=== PATIENT | female | born 1960 | race Caucasian/White ===

== ENCOUNTER → 2017-03-30 07:05 | Outpatient (CLI) | payer OTHER, SELFPAY ==
[2017-03-30 10:38] LABS: Absolute Neutrophil Count 8.1 X10^3/uL (2.0-7.7); Basophil# 0.04 X10^3/uL; Basophil% 0.3 % (0-1); Eosinophil# 0.28 X10^3/uL; Eosinophils% 2.4 % (0-5); Hematocrit 40.7 % (37-47); Hemoglobin 13.3 g/dl (12.0-15.0); Lymphocyte % 16.1 % (19-41); Mean Corp Hgb Conc 32.7 g/gl (32-36); Mean Corpuscular Hgb 29.4 pg (27.0-32.0); Mean Platelet Vol. 11.6 fl (6.2-12.0); Monocyte# 1.44 X10^3/uL; Monocyte% 12.2 % (0-10); Neutrophil # 8.12 X10^3/uL (2.7-7.7); Neutrophil % 68.7 % (47-70); Platelet Count 344 K/mm3 (150-450); RBC Distribution Width CV 13.5 % (11.6-14.6); RBC Distribution Width SD 43.9 fl (35.1-43.9); Red Blood Count 4.52 M/mm3 (4.2-5.4); White Blood Count 11.8 K/mm3 (4.4-11.0)
[2017-03-30 10:41] LABS: POSITIVE COUNT NO; POSITIVE DIFFERENTIAL NO; POSITIVE MORPHOLOGY NO
[2017-03-30 10:56] LABS: Vitamin D,25 Hydroxy 25.6 ng/mL (19.95-100.01)
[2017-03-30 11:16] LABS: ALB/GLOB Ratio 0.9 RATIO (0.9-2.4); AST(SGOT) 28 U/L (15-37); Alanine Aminotransfer ALT/SGPT 43 U/L (13-56); Albumin, Serum 3.6 g/dL (3.2-5.0); Alkaline Phosphatase 116 U/L (45-117); Anion Gap 9 (5-15); BUN 20 mg/dL (7-18); BUN/Creat Ratio 28.5 RATIO (10-20); CPK Total, Creatine Kinase 115 U/L (26-192); Chloride 102 mmol/L (98-107); Cholesterol 165 mg/dL (200); EST Glomerular Filtration Rate 92 mL/min (>60); Est Glom Filt Rate - Afr Amer 111 mL/min (>60); Globulin 4.1 g/dL (2.2-4.2); Glucose 78 mg/dL (74-106); High Density Lipoprotein 40 mg/dL; Potassium 3.8 mmol/L (3.5-5.1); Protein, Total 7.7 g/dL (6.4-8.2); Sodium Level 139 mmol/L (136-145); Thyroid Stim Hormone (TSH) 1.52 uIU/mL (0.358-3.74); Triglycerides 148 mg/dL; Very Low Density Lipoprotein 30 mg/dL (5-40)
== END ==
PROVIDERS: Family Provider Family Medicine; PCP Family Medicine; Visit Provider Family Medicine
DX: R25.2 Cramp and spasm (principal); E55.9 Vitamin D deficiency, unspecified; E78.5 Hyperlipidemia, unspecified; Z02.9 Encounter for administrative examinations, unspecified; Z72.0 Tobacco use; Z13.29 Encounter for screening for other suspected endocrine disorder
CPT/HCPCS: 36415; 80053; 80061; 82306; 82550; 84443; 85025

== ENCOUNTER → 2018-01-01 16:15 | Outpatient (CLI) | payer OTHER, SELFPAY ==
[2016-04-14 21:03] VITALS: BMI 23.5
[2018-01-01 17:50] LABS: Absolute Lymphocyte Count 2.27 X10^3/ul (0.83-4.51); Basophil# 0.03 X10^3/uL; Basophil% 0.3 % (0-1); Eosinophil# 0.26 X10^3/uL; Eosinophils% 2.7 % (0-5); Hematocrit 41.8 % (37-47); Hemoglobin 13.6 g/dl (12.0-15.0); Lymphocyte # 2.27 X10^3/ul (4.0); Lymphocyte % 23.8 % (19-41); Mean Corp Hgb Conc 32.5 g/gl (32-36); Mean Corpuscular Hgb 29.2 pg (27.0-32.0); Mean Corpuscular Volume 89.9 fL (81-99); Mean Platelet Vol. 10.9 fl (6.2-12.0); Monocyte% 9.5 % (0-10); Neutrophil # 6.04 X10^3/uL (2.7-7.7); Neutrophil % 63.5 % (47-70); Platelet Count 377 K/mm3 (150-450); RBC Distribution Width CV 13.6 % (11.6-14.6); RBC Distribution Width SD 44.5 fl (35.1-43.9); Red Blood Count 4.65 M/mm3 (4.2-5.4); White Blood Count 9.5 K/mm3 (4.4-11.0)
[2018-01-01 17:59] LABS: POSITIVE COUNT NO; POSITIVE DIFFERENTIAL NO; POSITIVE MORPHOLOGY NO
[2018-01-01 18:16] LABS: ALB/GLOB Ratio 1.1 RATIO (0.9-2.4); AST(SGOT) 17 U/L (15-37); Alanine Aminotransfer ALT/SGPT 27 U/L (13-56); Albumin, Serum 4.1 g/dL (3.2-5.0); Alkaline Phosphatase 92 U/L (45-117); Anion Gap 9 (5-15); BUN 15 mg/dL (7-18); BUN/Creat Ratio 20.3 RATIO (10-20); Calcium,Total 9.4 mg/dL (8.5-10.1); Chloride 107 mmol/L (98-107); Cholesterol 251 mg/dL (200); Creatinine, Serum 0.74 mg/dL (0.55-1.02); EST Glomerular Filtration Rate 86 mL/min (>60); Est Glom Filt Rate - Afr Amer 104 mL/min (>60); Globulin 3.9 g/dL (2.2-4.2); Glucose 90 mg/dL (74-106); High Density Lipoprotein 46 mg/dL; Potassium 3.6 mmol/L (3.5-5.1); Sodium Level 142 mmol/L (136-145); Triglycerides 131 mg/dL; Very Low Density Lipoprotein 26 mg/dL (5-40)
[2018-01-01 18:23] LABS: Vitamin D,25 Hydroxy 30.5 ng/mL (29.95-100.01)
--- OUTSIDE RECORDS SUMMARY | 2018-02-27 09:04 | XMS RPT_ITS ---
:1960 Author Organization OHIP Care Team Providers Name Role Phone Derrick Delgado Attending Unavailable Derrick Delgado Primary Care Unavailable Derrick Delgado Attending Unavailable Derrick Delgado Primary Care Unavailable PROBLEMS PROBLEMS DATE TYPE CONDITION / CODE ATTENDING STATUS SOURCE 04/05/2017 Unknown R25.2 - Cramp Derrick Delgado Active [place] [facility] / Community R25.2(ICD-10) Hospital Repository PROCEDURES PROCEDURES No Procedure Records FoundRESULTS RESULTS CBC W/DIFF, AUTOMATED Collected: 01/01/2018 Status: F Source: [place] 4:16 PM [facility] REPOSITORY TYPE CODE TESTS RESULT OUT OF RANGE REFERENCE UNITS LAB L100.1000 4.4-11.0 K/mm3 Normal WBC 9.5 LAB L100.1200 4.2-5.4 M/mm3 Normal RBC 4.65 LAB L100.1300 12.0-15.0 g/dl Normal HGB 13.6 LAB L100.1400 37-47 % Normal HCT 41.8 LAB L100.1500 81-99 fL Normal MCV 89.9 LAB L100.1600 27.0-32.0 pg Normal MCH 29.2 LAB L100.1700 32-36 g/gl Normal MCHC 32.5 LAB L100.1810 11.6-14.6 % Normal RDW CV 13.6 LAB L100.1820 35.1-43.9 fl High RDW SD 44.5 LAB L100.1900 150-450 K/mm3 Normal PLT 377 LAB L100.2000 6.2-12.0 fl Normal MPV 10.9 LAB L100.2100 47-70 % Normal NEUT% 63.5 LAB L100.2200 19-41 % Normal LY% 23.8 LAB L100.2300 0-10 % Normal MONO% 9.5 LAB L100.2400 0-5 % Normal EO% 2.7 LAB L100.2500 0-1 % Normal BASO% 0.3 LAB L100.2550 0.0-0.9 % Normal IM GRAN % 0.200 Result Comment: IG% - Immature Granulocytes (promyelocytes, myelocytes and metamyelocytes) > 1% indicates that a LEFT SHIFT is Present. LAB L100.2620 2.0-7.7 X10 3/uL Normal Absolute Neut 6.0 LAB L100.2720 0.83-4.51 X10 3/ul Normal Absolute Lymph 2.27 Performed By: #### L100.0100, L500.4050, L500.4100, L506.1000 #### [facility] [address] [place], [address] COMPREHENSIVE METABOLIC Collected: 01/01/2018 Status: F Source: [facility] 4:16 PM [facility] REPOSITORY TYPE CODE TESTS RESULT OUT OF RANGE REFERENCE UNITS LAB L501.0100 74-106 mg/dL Normal GLU 90 Result Comment: Please note revised GLUCOSE reference range effective 2017. LAB L501.1000 7-18 mg/dL Normal BUN 15 LAB L501.1100 0.55-1.02 mg/dL Normal CREAT,SERUM 0.74 Result Comment: The validity of the calculated GFR AND GFRAA in patients over 70 years has not been determined. Clinical correlation is essential. LAB L501.1110 >60 mL/min Normal EST GFR 86 Result Comment: Non- GFR Calc LAB L501.1115 >60 mL/min Normal EST GFR - AA 104 Result Comment: GFR Calc LAB L501.1300 10-20 RATIO High BUN/CRE 20.3 LAB L501.1500 6.4-8.2 g/dL T Normal PROT 8.0 LAB L501.1800 3.2-5.0 g/dL Normal ALB 4.1 LAB L501.1950 2.2-4.2 g/dL Normal GLOB 3.9 LAB L501.2000 0.9-2.4 RATIO Normal A/G 1.1 LAB L501.2200 8.5-10.1 mg/dL CA Normal 9.4 LAB L501.4100 15-37 U/L Normal AST 17 LAB L501.4305 45-117 U/L Normal ALK P 92 LAB L501.4405 13-56 U/L Normal ALT 27 LAB L501.4600 0.20-1.00 mg/dL T Normal BILI 0.20 LAB L501.5300 136-145 mmol/L NA Normal 142 LAB L501.5600 3.5-5.1 mmol/L K Normal 3.6 LAB L501.5900 98-107 mmol/L CL Normal 107 LAB L501.6100 21.0-32.0 mmol/L Normal CO2 26.0 LAB L501.6200 5-15 Normal GAP 9 Performed By: #### L100.0100, L500.4050, L500.4100, L506.1000 #### [facility] [address] [place], [address] LIPID PROFILE Collected: 01/01/2018 Status: F Source: [place] 4:16 PM [facility] REPOSITORY TYPE CODE TESTS RESULT OUT OF RANGE REFERENCE UNITS LAB L501.4900 200 mg/dL High CHOL 251 Result Comment: <200 mg/dL Desirable 200-240 mg/dL Borderline >240 mg/dL High Risk LAB L501.5000 mg/dL Normal TRIG 131 Result Comment: The drugs N-Acetylcysteine and Metamizole may falsely depress this assay. Serum Triglycerides Reference Interval Normal <150 mg/dL Borderline high 150 - 199 mg/dL High 200 - 499 mg/dL Very High > or = 500 mg/dL LAB L501.6400 mg/dL Normal HDL 46 Result Comment: The drugs N-Acetylcysteine and Metamizole may falsely depress this assay. Reference Range HDL <40 mg/dL Low HDL Cholesterol HDL >or= 60 mg/dL High HDL Cholesterol LAB L501.6500 0-130 mg/dL High LDL 179 LAB L501.6600 5-40 mg/dL Normal VLDL 26 Performed By: #### L100.0100, L500.4050, L500.4100, L506.1000 #### [facility] [address] [place], [address] VITAMIN D,25 HYDROXY Collected: 01/01/2018 Status: F Source: [place] 4:16 PM [facility] REPOSITORY TYPE CODE TESTS RESULT OUT OF RANGE REFERENCE UNITS LAB L506.1000 29.95-100.01 ng/mL Normal Vitamin D 30.5 25-OH Result Comment: Vitamin D 25(OH) Status Range Deficiency <20 ng/mL (50nmol/L) Insuffciency 20 - 30 ng/mL (50 - 75 nmol/L) Sufficiency 30 - 100 ng/mL (75 - 250 nmol/L) Toxicity >100 ng/mL (>250 nmol/L) Performed By: #### L100.0100, L500.4050, L500.4100, L506.1000 #### [facility] [address] [place], [address] CBC W/DIFF, AUTOMATED Collected: 03/30/2017 Status: F Source: [place] 7:18 AM [facility] REPOSITORY Order Comment: Order Date: 03/28/17 Order Info: 0184-1 - CBCD TYPE CODE TESTS RESULT OUT OF RANGE REFERENCE UNITS LAB L100.1000 4.4-11.0 K/mm3 High WBC 11.8 LAB L100.1200 4.2-5.4 M/mm3 Normal RBC 4.52 LAB L100.1300 12.0-15.0 g/dl Normal HGB 13.3 LAB L100.1400 37-47 % Normal HCT 40.7 LAB L100.1500 81-99 fL Normal MCV 90.0 LAB L100.1600 27.0-32.0 pg Normal MCH 29.4 LAB L100.1700 32-36 g/gl Normal MCHC 32.7 LAB L100.1810 11.6-14.6 % Normal RDW CV 13.5 LAB L100.1820 35.1-43.9 fl Normal RDW SD 43.9 LAB L100.1900 150-450 K/mm3 Normal PLT 344 LAB L100.2000 6.2-12.0 fl Normal MPV 11.6 LAB L100.2100 47-70 % Normal NEUT% 68.7 LAB L100.2200 19-41 % Low LY% 16.1 LAB L100.2300 0-10 % High MONO% 12.2 LAB L100.2400 0-5 % Normal EO% 2.4 LAB L100.2500 0-1 % Normal BASO% 0.3 LAB L100.2550 0.0-0.9 % Normal IM GRAN % 0.300 Result Comment: IG% - Immature Granulocytes (promyelocytes, myelocytes and metamyelocytes) > 1% indicates that a LEFT SHIFT is Present. LAB L100.2620 2.0-7.7 X10 3/uL High Absolute Neut 8.1 LAB L100.2720 0.83-4.51 X10 3/ul Normal Absolute Lymph 1.90 Performed By: #### L100.0100, L506.1000, L500.4050, L500.4100, L501.3620, L501.9520 #### [facility] [address] [place], [place], [id number] VITAMIN D,25 HYDROXY Collected: 03/30/2017 Status: F Source: [place] 7:18 AM [facility] REPOSITORY Order Comment: Order Date: 03/28/17 Order Info: [id number] - VITD25 TYPE CODE TESTS RESULT OUT OF RANGE REFERENCE UNITS LAB L506.1000 19.95-100.01 ng/mL Normal Vitamin D 25.6 25-OH Result Comment: Vitamin D 25(OH) Status Range Deficiency <20 ng/mL (50nmol/L) Insuffciency 20 - 30 ng/mL (50 - 75 nmol/L) Sufficiency 30 - 100 ng/mL (75 - 250 nmol/L) Toxicity >100 ng/mL (>250 nmol/L) Performed By: #### L100.0100, L506.1000, L500.4050, L500.4100, L501.3620, L501.9520 #### [facility] [address] [place], [id number] COMPREHENSIVE METABOLIC Collected: 03/30/2017 Status: F Source: [place] [facility] 7:18 AM [facility] REPOSITORY Order Comment: Order Date: 03/28/17 Order Info: [id number] - CMP Order Info: [id number] - LIPID Order Info: [id number] - CPK Order Info: 3016-3 - TSH TYPE CODE TESTS RESULT OUT OF RANGE REFERENCE UNITS LAB L501.0100 74-106 mg/dL Normal GLU 78 Result Comment: Please note revised GLUCOSE reference range effective 2017. LAB L501.1000 7-18 mg/dL High BUN 20 LAB L501.1100 0.55-1.02 mg/dL Normal CREAT,SERUM 0.70 Result Comment: The validity of the calculated GFR AND GFRAA in patients over 70 years has not been determined. Clinical correlation is essential. LAB L501.1110 >60 mL/min Normal EST GFR 92 Result Comment: Non- GFR Calc LAB L501.1115 >60 mL/min Normal EST GFR - AA 111 Result Comment: GFR Calc LAB L501.1300 10-20 RATIO High BUN/CRE 28.5 LAB L501.1500 6.4-8.2 g/dL T Normal PROT 7.7 LAB L501.1800 3.2-5.0 g/dL Normal ALB 3.6 LAB L501.1950 2.2-4.2 g/dL Normal GLOB 4.1 LAB L501.2000 0.9-2.4 RATIO Normal A/G 0.9 LAB L501.2200 8.5-10.1 mg/dL CA Normal 9.0 LAB L501.4100 15-37 U/L Normal AST 28 LAB L501.4305 45-117 U/L Normal ALK P 116 LAB L501.4405 13-56 U/L Normal ALT 43 Result Comment: Please note revised ALT reference range effective 2017. LAB L501.4600 0.20-1.00 mg/dL Normal T BILI 0.40 LAB L501.5300 136-145 mmol/L Normal NA 139 LAB L501.5600 3.5-5.1 mmol/L Normal K 3.8 LAB L501.5900 98-107 mmol/L Normal CL 102 LAB L501.6100 21.0-32.0 mmol/L Normal CO2 28.0 LAB L501.6200 5-15 Normal GAP 9 Performed By: #### L100.0100, L506.1000, L500.4050, L500.4100, L501.3620, L501.9520 #### [facility] [address] [place], [place], [address] LIPID PROFILE Collected: 03/30/2017 Status: F Source: [place] 7:18 AM [facility] REPOSITORY Order Comment: Order Date: 03/28/17 Order Info: [id number] - CMP Order Info: [id number] - LIPID Order Info: 6 - CPK Order Info: 3016-3 - TSH TYPE CODE TESTS RESULT OUT OF RANGE REFERENCE UNITS LAB L501.4900 200 mg/dL Normal CHOL 165 Result Comment: <200 mg/dL Desirable 200-240 mg/dL Borderline >240 mg/dL High Risk LAB L501.5000 mg/dL Normal TRIG 148 Result Comment: The drugs N-Acetylcysteine and Metamizole may falsely depress this assay. Serum Triglycerides Reference Interval Normal <150 mg/dL Borderline high 150 - 199 mg/dL High 200 - 499 mg/dL Very High > or = 500 mg/dL LAB L501.6400 mg/dL Normal HDL 40 Result Comment: The drugs N-Acetylcysteine and Metamizole may falsely depress this assay. Reference Range HDL <40 mg/dL Low HDL Cholesterol HDL >or= 60 mg/dL High HDL Cholesterol LAB L501.6500 0-130 mg/dL Normal LDL 95 LAB L501.6600 5-40 mg/dL Normal VLDL 30 Performed By: #### L100.0100, L506.1000, L500.4050, L500.4100, L501.3620, L501.9520 #### [facility] [address] [place], [address] CPK TOTAL, CREATINE Collected: 03/30/2017 Status: F Source: [place] 7:18 AM [facility] REPOSITORY Order Comment: Order Date: 03/28/17 Order Info: [id number] - CMP Order Info: [id number] - LIPID Order Info: [id number] - CPK Order Info: 3016-3 - TSH TYPE CODE TESTS RESULT OUT OF RANGE REFERENCE UNITS LAB L501.3620 26-192 U/L Normal CPK TOTAL 115 Performed By: #### L100.0100, L506.1000, L500.4050, L500.4100, L501.3620, L501.9520 #### [facility] [address] [place], [address] THYROID STIM HORMONE Collected: 03/30/2017 Status: F Source: [place] ([facility]) 7:18 AM [facility] REPOSITORY Order Comment: Order Date: 03/28/17 Order Info: [id number] - CMP Order Info: [id number] - LIPID Order Info: [id number] - CPK Order Info: 3016-3 - TSH TYPE CODE TESTS RESULT OUT OF RANGE REFERENCE UNITS LAB L501.9520 0.358-3.74 uIU/mL Normal TSH 1.52 Performed By: #### L100.0100, L506.1000, L500.4050, L500.4100, L501.3620, L501.9520 #### [facility] [address] [place], [address] ALLERGIES ALLERGIES DATE TYPE / CODE NAME / CODE REACTION SEVERITY SOURCE 07/29/2014 Drug No Known Unknown [facility] Allergy/4160 Allergies/F00 Hospital 98518(SNOMED 9941648(RXNOR Repository CT) M) ENCOUNTERS ENCOUNTERS ADMIT/DISCHARGE ACCOUNT ADMITTING ENCOUNTER LOCATION SOURCE NUMBER CLASS 01/01/2018 [id number] [facility] [place] [facility] ing:MFPLAB Repository 03/30/2017 [id number] [facility] ing:MTLAB Repository PAYERS PAYERS ENCOUNTER GUARANTOR PAYER SUBSCRIBER SOURCE 01/01/2018 [id number] Faustino KennedyOB: [place] [address], Insurance:AULTCAREPol [id number] [facility] [address]Tec: icy Number: [facility] [id number] Repository () e Date:5412-40-79GN [address] [place] [phone]: 01/01/2018 Secondary NOT GIVENUNK [facility] Insurance:SELF PAY [facility] Number: Effective Repository Date:2018-01-01 03/30/2017 [address]ino [id number] Faustino HauserDOB: [place] [address], Insurance:AULTCAREPol [id number] [facility] [address]Kqo: icy Number: [facility] [id number] Repository () e Date:1828-13-59TB [address], [place] [address]TP: 03/30/2017 Secondary NOT GIVENUNK [place] Insurance:SELF PAY [facility] Number: Effective Repository Date:2017-03-30
== END ==
PROVIDERS: Family Provider Family Medicine; PCP Family Medicine; Visit Provider Family Medicine
DX: E78.5 Hyperlipidemia, unspecified (principal); E55.9 Vitamin D deficiency, unspecified; Z72.0 Tobacco use
CPT/HCPCS: 36415; 80053; 80061; 82306; 85025

== ENCOUNTER → 2018-02-22 08:56 | Outpatient (CLI) | payer OTHER, SELFPAY ==
[2018-02-22 11:09] LABS: Cholesterol 150 mg/dL (200); High Density Lipoprotein 36 mg/dL; Triglycerides 106 mg/dL; Very Low Density Lipoprotein 21 mg/dL (5-40)
--- OUTSIDE RECORDS SUMMARY | 2018-04-28 15:56 | XMS RPT_ITS ---
:1960 Author Organization OHIP Care Team Providers Name Role Phone Derrick Delgado Attending Unavailable Derrick Delgado Primary Care Unavailable Derrick Delgado Attending Unavailable Derrick Delgado Primary Care Unavailable Derrick Delgado Attending Unavailable Derrick Delgado Primary Care Unavailable PROBLEMS PROBLEMS DATE TYPE CONDITION / CODE ATTENDING STATUS SOURCE 04/05/2017 Unknown R25.2 - Cramp Derrick Delgado Active [place] [facility] / Community R25.2(ICD-10) Hospital Repository PROCEDURES PROCEDURES No Procedure Records FoundRESULTS RESULTS LIPID PROFILE Collected: 02/22/2018 Status: F Source: [place] 8:59 AM [facility] REPOSITORY TYPE CODE TESTS RESULT OUT OF RANGE REFERENCE UNITS LAB L501.4900 200 mg/dL Normal CHOL 150 Result Comment: <200 mg/dL Desirable 200-240 mg/dL Borderline >240 mg/dL High Risk LAB L501.5000 mg/dL Normal TRIG 106 Result Comment: The drugs N-Acetylcysteine and Metamizole may falsely depress this assay. Serum Triglycerides Reference Interval Normal <150 mg/dL Borderline high 150 - 199 mg/dL High 200 - 499 mg/dL Very High > or = 500 mg/dL LAB L501.6400 mg/dL Low HDL 36 Result Comment: The drugs N-Acetylcysteine and Metamizole may falsely depress this assay. Reference Range HDL <40 mg/dL Low HDL Cholesterol HDL >or= 60 mg/dL High HDL Cholesterol LAB L501.6500 0-130 mg/dL Normal LDL 93 LAB L501.6600 5-40 mg/dL Normal VLDL 21 Performed By: #### L500.4100 #### [facility] [place], [address] CBC W/DIFF, AUTOMATED Collected: 01/01/2018 Status: F Source: [place] 4:16 PM [facility] [place] TYPE CODE TESTS RESULT OUT OF [...] By: #### L100.0100, L500.4050, L500.4100, L506.1000 #### [facility] [address] [place], [address] COMPREHENSIVE METABOLIC Collected: 01/01/2018 Status: F Source: [place] [facility] 4:16 PM [facility] TYPE CODE TESTS RESULT OUT OF [...] By: #### L100.0100, L500.4050, L500.4100, L506.1000 #### [facility] [address] [place], [address] LIPID PROFILE Collected: 01/01/2018 Status: F Source: [place] 4:16 PM [facility] TYPE CODE TESTS RESULT OUT OF [...] By: #### L100.0100, L500.4050, L500.4100, L506.1000 #### [facility] [address] [place], [place], [address] VITAMIN D,25 HYDROXY Collected: 01/01/2018 Status: F Source: [place] 4:16 PM [facility] TYPE CODE TESTS RESULT OUT OF RANGE REFERENCE UNITS LAB L506.1000 29.95-100.01 ng/mL Normal Vitamin D 30.5 25-OH Result Comment: Vitamin D 25(OH) Status Range Deficiency <20 ng/mL (50nmol/L) Insuffciency 20 - 30 ng/mL (50 - 75 nmol/L) Sufficiency 30 - 100 ng/mL (75 - 250 nmol/L) Toxicity >100 ng/mL (>250 nmol/L) Performed By: #### L100.0100, L500.4050, L500.4100, L506.1000 #### [facility] [address] [place], [address] CBC W/DIFF, AUTOMATED Collected: 03/30/2017 Status: F Source: [place] 7:18 AM [facility] Order Comment: Order Date: 03/28/17 Order [...] L100.0100, L506.1000, L500.4050, L500.4100, L501.3620, L501.9520 #### [facility] [address] [place], [address] VITAMIN D,25 HYDROXY Collected: 03/30/2017 Status: F Source: [place] 7:18 AM [facility] Order Comment: Order Date: 03/28/17 Order Info: [id number] - VITD25 TYPE CODE TESTS RESULT OUT [...] L100.0100, L506.1000, L500.4050, L500.4100, L501.3620, L501.9520 #### [facility] [address] [place], [address] COMPREHENSIVE METABOLIC Collected: 03/30/2017 Status: F Source: [place] [facility] 7:18 AM [facility] Order Comment: Order Date: 03/28/17 Order Info: [id number] - CMP Order Info: [id number] - LIPID Order Info: 2157-6 - CPK [...] L100.0100, L506.1000, L500.4050, L500.4100, L501.3620, L501.9520 #### [facility] [address] [place], [address] LIPID PROFILE Collected: 03/30/2017 Status: F Source: [place] 7:18 AM [facility] Order Comment: Order Date: 03/28/17 Order Info: [id number] - CMP Order Info: [id number] - LIPID Order Info: 2157-6 - CPK [...] L100.0100, L506.1000, L500.4050, L500.4100, L501.3620, L501.9520 #### [facility] [address] [place], [place], [address] CPK TOTAL, CREATINE Collected: 03/30/2017 Status: F Source: [place] 7:18 AM [facility] Order Comment: Order Date: 03/28/17 Order Info: [id number] - CMP Order Info: [id number] - LIPID Order Info: [id number] - CPK Order Info: 3016-3 - TSH TYPE CODE TESTS RESULT OUT OF RANGE REFERENCE UNITS LAB L501.3620 26-192 U/L Normal CPK TOTAL 115 Performed By: #### L100.0100, L506.1000, L500.4050, L500.4100, L501.3620, L501.9520 #### [facility] [address] [place], [place], [address] THYROID STIM HORMONE Collected: 03/30/2017 Status: F Source: [place] ([facility]) 7:18 AM [facility] Order Comment: Order Date: 03/28/17 Order Info: [id number] - CMP Order Info: [id number] - LIPID Order Info: 215-6 - CPK Order Info: 3016-3 - TSH TYPE CODE TESTS RESULT OUT OF RANGE REFERENCE UNITS LAB L501.9520 0.358-3.74 uIU/mL Normal TSH 1.52 Performed By: #### L100.0100, L506.1000, L500.4050, L500.4100, L501.3620, L501.9520 #### [facility] [address] [place], [address] ALLERGIES ALLERGIES DATE TYPE / CODE NAME / CODE REACTION SEVERITY SOURCE 07/29/2014 Drug No Known Unknown [facility] Allergy/4160 Allergies/F00 Hospital 28040(SNOMED 5889409(RXNOR Repository CT) M) ENCOUNTERS ENCOUNTERS ADMIT/DISCHARGE ACCOUNT ADMITTING ENCOUNTER LOCATION SOURCE NUMBER CLASS 02/22/2018 [id number] Amb[facility] [place] 3 [facility] ing:MFPLAB Repository 01/01/2018 [id number] [facility] [place] [facility] ing:MFPLAB Repository 03/30/2017 [id number] [facility] ing:MTLAB Repository PAYERS PAYERS ENCOUNTER GUARANTOR PAYER SUBSCRIBER SOURCE 02/22/2018 Faustino [id number] Primary Faustino HauserDOB: [place] [address], Insurance:AULTAlegría [id number] [address]Fky: icy Number: [facility] [id number] Repository (HP) e Date:5205-20-37ZZ [address] [place] [phone]: 02/22/2018 Secondary NOT GIVENUNK [place] Insurance:SELF PAY [facility] Number: Effective Repository Date:2018-02-22 01/01/2018 Faustino [id number] Faustino HauserDOB: [place] [address], Insurance:AULTAlegría [id number] [address]Zsf: icy Number: [facility] [id number] Repository (HP) e Date:0714-66-57ND [address] [place] [phone]: 01/01/2018 Secondary NOT GIVENUNK [place] Insurance:SELF PAY [facility] Number: Effective Repository Date:2018-01-01 03/30/2017 Faustino [id number] Faustino HauserDOB: [place] [address], Insurance:AULTCAREPol [id number] [facility] [address]Zsy: icy Number: [facility] [id number] Repository (HP) e Date:4300-43-83MY [address], [place] [address]QO: 03/30/2017 Secondary NOT GIVENUNK [place] Insurance:SELF PAY [facility] Number: Effective Repository Date:2017-03-30
== END ==
PROVIDERS: Family Provider Family Medicine; PCP Family Medicine; Visit Provider Family Medicine
DX: E78.5 Hyperlipidemia, unspecified (principal)
CPT/HCPCS: 36415; 80061

== ENCOUNTER → 2018-05-08 09:31 | Outpatient (CLI) | payer SELFPAY ==
[2016-04-14 21:03] VITALS: BMI 23.5
[2018-05-08 10:33] LABS: ALB/GLOB Ratio 1.1 RATIO (0.9-2.4); AST(SGOT) 28 U/L (15-37); Alanine Aminotransfer ALT/SGPT 43 U/L (13-56); Albumin, Serum 3.9 g/dL (3.2-5.0); Alkaline Phosphatase 99 U/L (45-117); Anion Gap 4 (5-15); BUN 19 mg/dL (7-18); BUN/Creat Ratio 27.8 RATIO (10-20); Calcium,Total 9.1 mg/dL (8.5-10.1); Chloride 107 mmol/L (98-107); Cholesterol 174 mg/dL (200); Creatinine, Serum 0.68 mg/dL (0.55-1.02); EST Glomerular Filtration Rate 94 mL/min (>60); Est Glom Filt Rate - Afr Amer 114 mL/min (>60); Globulin 3.5 g/dL (2.2-4.2); Glucose 87 mg/dL (74-106); High Density Lipoprotein 41 mg/dL; Potassium 4.2 mmol/L (3.5-5.1); Protein, Total 7.4 g/dL (6.4-8.2); Sodium Level 139 mmol/L (136-145); Triglycerides 143 mg/dL; Very Low Density Lipoprotein 29 mg/dL (5-40)
== END ==
PROVIDERS: Family Provider Family Medicine; PCP Family Medicine; Referring Provider Family Medicine; Visit Provider Family Medicine
DX: E78.5 Hyperlipidemia, unspecified (principal)
CPT/HCPCS: 36415; 80053; 80061

== ENCOUNTER → 2018-11-06 | Outpatient (CLI) | payer SELFPAY ==
[2016-04-14 21:03] VITALS: BMI 23.5
[2018-11-06 13:04] LABS: Vitamin D,25 Hydroxy 50.1 ng/mL (29.95-100.01)
[2018-11-06 13:24] LABS: ALB/GLOB Ratio 1.1 RATIO (0.9-2.4); AST(SGOT) 17 U/L (15-37); Alanine Aminotransfer ALT/SGPT 29 U/L (13-56); Albumin, Serum 4.1 g/dL (3.2-5.0); Alkaline Phosphatase 91 U/L (45-117); Anion Gap 8 (5-15); BUN 18 mg/dL (7-18); BUN/Creat Ratio 23.7 RATIO (10-20); CPK Total, Creatine Kinase 138 U/L (26-192); Calcium,Total 9.4 mg/dL (8.5-10.1); Chloride 108 mmol/L (98-107); Cholesterol 159 mg/dL (200); Creatinine, Serum 0.76 mg/dL (0.55-1.02); EST Glomerular Filtration Rate 83 mL/min (>60); Est Glom Filt Rate - Afr Amer 101 mL/min (>60); Globulin 3.7 g/dL (2.2-4.2); Glucose 82 mg/dL (74-106); High Density Lipoprotein 44 mg/dL; Potassium 4.1 mmol/L (3.5-5.1); Protein, Total 7.8 g/dL (6.4-8.2); Sodium Level 142 mmol/L (136-145); Triglycerides 130 mg/dL; Very Low Density Lipoprotein 26 mg/dL (5-40)
== END | disposition home or self-care (01) ==
PROVIDERS: Family Provider Family Medicine; PCP Family Medicine; Visit Provider Family Medicine
DX: E55.9 Vitamin D deficiency, unspecified (principal); E78.5 Hyperlipidemia, unspecified; R25.2 Cramp and spasm
CPT/HCPCS: 36415; 80053; 80061; 82306; 82550

== ENCOUNTER → 2019-05-13 09:32 | Outpatient (CLI) | payer SELFPAY ==
--- NOTE | 2019-05-13 09:38 | RAD_ITS ---
STUDY: X-RAY - LEFT WRIST REASON FOR EXAM: Female, 59 years old. Left wrist pain since November -- no injury TECHNIQUE: 3 view(s) of the wrist were obtained. COMPARISON: None. FINDINGS: Normal visualized distal radius and ulna. Normal radiocarpal articulation. Normal distal radioulnar articulation. Normal carpal bones. Normal carpal articulations. Normal carpometacarpal articulation of the thumb. Normal second through fifth carpometacarpal articulations. Normal visualized metacarpal bones. The soft tissue structures are unremarkable. RAD/Wrist min 3 Views IMPRESSION: Normal x-ray examination of the wrist. Electronically Signed: Gigi Alamo, at 9:58 EDT , Service support ,
[2019-05-13 12:10] LABS: Vitamin D,25 Hydroxy 59.5 ng/mL
[2019-05-13 12:13] LABS: AST(SGOT) 20 U/L (15-37); Alanine Aminotransfer ALT/SGPT 35 U/L (13-56); Albumin, Serum 3.9 g/dL (3.2-5.0); Alkaline Phosphatase 92 U/L (45-117); Anion Gap 6 (5-15); BUN 18 mg/dL (7-18); BUN/Creat Ratio 25.8 RATIO (10-20); Calcium,Total 9.3 mg/dL (8.5-10.1); Chloride 108 mmol/L (98-107); Cholesterol 182 mg/dL (200); EST Glomerular Filtration Rate 92 mL/min (>60); Est Glom Filt Rate - Afr Amer 111 mL/min (>60); Globulin 3.9 g/dL (2.2-4.2); Glucose 94 mg/dL (74-106); High Density Lipoprotein 44 mg/dL; Potassium 3.7 mmol/L (3.5-5.1); Protein, Total 7.8 g/dL (6.4-8.2); Sodium Level 140 mmol/L (136-145); Triglycerides 195 mg/dL; Very Low Density Lipoprotein 39 mg/dL (5-40)
== END ==
PROVIDERS: PCP Family Medicine; Referring Provider Family Medicine; Visit Provider Family Medicine
DX: E55.9 Vitamin D deficiency, unspecified (principal); E78.5 Hyperlipidemia, unspecified; M25.532 Pain in left wrist
CPT/HCPCS: 36415; 73110; 80053; 80061; 82306

== ENCOUNTER → 2019-11-10 08:42 | Outpatient (CLI) | payer SELFPAY ==
[2016-04-14 21:03] VITALS: BMI 23.5
[2019-11-10 08:52] LABS: Bacteria 0 SEEN /hpf (None Seen); Mucous, Urine 0 SEEN /hpf (<or=2+); Red Blood Cells-Urine 0 SEEN /hpf (0-5); White Blood Cells 0 SEEN /hpf (0-5)
[2019-11-10 09:47] LABS: Absolute Lymphocyte Count 2.02 X10^3/uL (0.83-4.51); Absolute Neutrophil Count 6.9 X10^3/uL (2.0-7.7); Basophil# 0.07 X10^3/uL; Basophil% 0.7 % (0-1); Eosinophil# 0.38 X10^3/uL; Eosinophils% 3.7 % (0-5); Hematocrit 42.7 % (37-47); Hemoglobin 13.9 g/dL (12.0-15.0); Lymphocyte # 2.02 X10^3/ul (4.0); Lymphocyte % 19.6 % (19-41); Mean Corp Hgb Conc 32.6 g/dL (32-36); Mean Corpuscular Hgb 29.3 pg (27.0-32.0); Mean Corpuscular Volume 89.9 fL (81-99); Mean Platelet Vol. 11.1 fl (6.2-12.0); Monocyte# 0.92 X10^3/uL; Monocyte% 8.9 % (0-10); NRBC Flagged by Analyzer 0 % (0-5); Neutrophil # 6.88 X10^3/uL (2.7-7.7); Neutrophil % 66.6 % (47-70); Platelet Count 303 K/mm3 (150-450); RBC Distribution Width CV 14.5 % (11.6-14.6); RBC Distribution Width SD 47.4 fl (35.1-43.9); Red Blood Count 4.75 M/mm3 (4.2-5.4); White Blood Count 10.3 K/mm3 (4.4-11.0)
[2019-11-10 09:47] LABS: Color, Urine Yellow (Yellow); Glucose, Dipstick Normal (Normal); Ketone-Dipstick Negative (Negative); Leukocyte Esterase-Dipstick Negative /ul (Negative); Nitrite-Dipstick Negative (Negative); Occult Blood-Urine Negative /ul (Negative); Protein-Dipstick Negative (Negative); Urine Bilirubin Dipstick Negative (Negative); Urine Clarity Sl. Cloudy (Clear); Urine Urobilinogen Normal (Normal)
[2019-11-10 09:52] LABS: Squamous Epithelial Cells - UA 0-5 SEEN /hpf (5-10)
[2019-11-10 10:10] LABS: AST(SGOT) 20 U/L (15-37); Alanine Aminotransfer ALT/SGPT 29 U/L (13-56); Albumin, Serum 3.8 g/dL (3.2-5.0); Alkaline Phosphatase 91 U/L (45-117); Anion Gap 4 (5-15); BUN 23 mg/dL (7-18); BUN/Creat Ratio 32.1 RATIO (10-20); Calcium,Total 9.2 mg/dL (8.5-10.1); Chloride 109 mmol/L (98-107); Cholesterol 160 mg/dL (200); Creatinine, Serum 0.72 mg/dL (0.55-1.02); EST Glomerular Filtration Rate 89 mL/min (>60); Est Glom Filt Rate - Afr Amer 107 mL/min (>60); Globulin 3.7 g/dL (2.2-4.2); Glucose 100 mg/dL (74-106); High Density Lipoprotein 49 mg/dL; Potassium 3.8 mmol/L (3.5-5.1); Protein, Total 7.5 g/dL (6.4-8.2); Sodium Level 140 mmol/L (136-145); Triglycerides 129 mg/dL; Very Low Density Lipoprotein 26 mg/dL (5-40)
[2019-11-10 19:40] LABS: Hemoglobin A1c 5.8 % (3.8-5.6)
[2019-11-12 08:14] LABS: Vitamin D,25 Hydroxy 63.9 ng/mL
== END ==
PROVIDERS: PCP Family Medicine; Referring Provider Family Medicine; Visit Provider Family Medicine
DX: E78.5 Hyperlipidemia, unspecified (principal); R73.09 Other abnormal glucose; E55.9 Vitamin D deficiency, unspecified; Z72.0 Tobacco use
CPT/HCPCS: 36415; 80053; 80061; 81001; 82306; 83036; 85025

== ENCOUNTER → 2019-11-11 09:24 | Outpatient (CLI) | payer SELFPAY ==
[2016-04-14 21:03] VITALS: BMI 23.5
--- NOTE | 2019-11-11 09:29 | RAD_ITS ---
STUDY: X-RAY CHEST REASON FOR EXAM: Female, 59 years old. spoon nail TECHNIQUE: PA and lateral views of the chest. COMPARISON: None. FINDINGS: The lungs are clear and expanded. There is no demonstrated pleural abnormality. Normal size heart. Normal mediastinum and floyd. Normal visualized pulmonary arteries. Normal visualized aortic arch and descending thoracic aorta. Normal visualized thoracic spine. Normal visualized ribs, clavicles, and shoulders. There is no demonstrated abnormality of the visualized soft tissue structures of the upper abdomen. RAD/Chest PA and Lateral IMPRESSION: Normal x-ray examination of the chest. Electronically Signed: Lucio Luong MD at 12:03 EDT Tel , Service support ,
== END ==
PROVIDERS: PCP Family Medicine; Referring Provider Family Medicine; Visit Provider Family Medicine
DX: L60.3 Nail dystrophy (principal)
CPT/HCPCS: 71046

== ENCOUNTER → 2020-05-11 09:05 | Outpatient (CLI) | payer SELFPAY ==
[2016-04-14 21:03] VITALS: BMI 23.5
[2020-05-11 10:12] LABS: Absolute Lymphocyte Count 1.93 X10^3/uL (0.83-4.51); Absolute Neutrophil Count 7.2 X10^3/uL (2.0-7.7); Basophil# 0.06 X10^3/uL; Basophil% 0.6 % (0-1); Eosinophil# 0.31 X10^3/uL; Eosinophils% 2.9 % (0-5); Hematocrit 45.7 % (37-47); Hemoglobin 14.6 g/dL (12.0-15.0); Lymphocyte # 1.93 X10^3/ul (4.0); Lymphocyte % 18.4 % (19-41); Mean Corp Hgb Conc 31.9 g/dL (32-36); Mean Corpuscular Volume 90.7 fL (81-99); Mean Platelet Vol. 11.2 fl (6.2-12.0); Monocyte# 1.01 X10^3/uL; Monocyte% 9.6 % (0-10); NRBC Flagged by Analyzer 0 % (0-5); Neutrophil # 7.17 X10^3/uL (2.7-7.7); Neutrophil % 68.2 % (47-70); Platelet Count 306 K/mm3 (150-450); RBC Distribution Width CV 13.6 % (11.6-14.6); RBC Distribution Width SD 45.1 fl (35.1-43.9); Red Blood Count 5.04 M/mm3 (4.2-5.4); White Blood Count 10.5 K/mm3 (4.4-11.0)
[2020-05-11 10:34] LABS: Cholesterol 194 mg/dL (200); High Density Lipoprotein 54 mg/dL; Triglycerides 117 mg/dL; Very Low Density Lipoprotein 23 mg/dL (5-40)
[2020-05-11 10:43] LABS: Vitamin D,25 Hydroxy 67.3 ng/mL
[2020-05-11 10:44] LABS: Hemoglobin A1c 5.6 % (3.8-5.6)
[2020-05-11 10:47] LABS: Microalbumin,Random Urine 20.7 mg/L (NO RANGE EST.); Microalbumin:Creatinine Ratio 9.9 mg/g CRE (<30 mg/g CRE)
== END ==
PROVIDERS: PCP Family Medicine; Visit Provider Family Medicine
DX: E55.9 Vitamin D deficiency, unspecified (principal); R73.02 Impaired glucose tolerance (oral); E78.5 Hyperlipidemia, unspecified; Z72.0 Tobacco use
CPT/HCPCS: 36415; 80061; 82043; 82306; 82570; 83036; 85025

== ENCOUNTER → 2020-08-13 08:04 | Outpatient (CLI) | payer SELFPAY ==
[2020-08-23 14:30] LABS: HPV Reflexed? NOT INDICATED
== END ==
PROVIDERS: PCP Family Medicine; Visit Provider Family Medicine
DX: Z01.419 Encounter for gynecological examination (general) (routine) without abnormal findings (principal)
CPT/HCPCS: 88175; G0145

== ENCOUNTER → 2020-08-30 08:22 | Outpatient (CLI) | payer SELFPAY ==
--- NOTE | 2020-08-30 08:37 | BI_ITS ---
MAMMOGRAPHY - BILATERAL SCREENING REASON FOR EXAM: Female, 60 years old. Routine annual screening examination. PERTINENT HISTORY: Non-contributory. TECHNIQUE: Digital bilateral breast lizz (3D mammographic acquisition) in the CC and MLO projections. 2-D mediolateral oblique (MLO) and craniocaudad (CC) views of both breasts were obtained. CAD: Full Field Digital Mammography with Computer Added Detection was performed. COMPARISON: Comparison is made with prior abdomen examination dated 12/19/2016. FINDINGS: Breast Composition: There are scattered areas of fibroglandular density. There are no dominant masses or suspicious calcifications. Small benign-appearing bilateral axillary lymph nodes. No other significant abnormalities are identified. There has been no significant change since the prior study. BI/SCRN MAMM (CAD)W/LIZZ BILAT IMPRESSION: Stable bilateral screening mammogram. Yearly follow-up mammogram recommended. (A) ASSESSMENT CATEGORY: BIRADS Category 2: Benign. A letter regarding these results will be sent to the patient by the facility within 30 days. Approximately 10% of breast cancers are not detected by mammography. A normal mammogram should not delay biopsy of a clinically suspicious abnormality. [id number] Electronically Signed: Gigi Alamo MD at 9:32 EDT , Service support ,
== END ==
PROVIDERS: PCP Family Medicine; Referring Provider Family Medicine; Visit Provider Family Medicine
DX: Z12.31 Encounter for screening mammogram for malignant neoplasm of breast (principal)
CPT/HCPCS: 77063; 77067

== ENCOUNTER → 2021-08-24 | Outpatient (CLI) | payer SELFPAY ==
[2021-08-24 09:46] LABS: Bacteria 0 SEEN /hpf (None Seen); Mucous, Urine 0 SEEN /hpf (<or=2+); Red Blood Cells-Urine 0 SEEN /hpf (0-5); White Blood Cells 0 SEEN /hpf (0-5)
[2021-08-24 12:08] LABS: Absolute Lymphocyte Count 2.01 X10^3/uL (0.83-4.51); Absolute Neutrophil Count 7.2 X10^3/uL (2.0-7.7); Basophil# 0.07 X10^3/uL; Basophil% 0.7 % (0-1); Eosinophil# 0.29 X10^3/uL; Eosinophils% 2.7 % (0-5); Hematocrit 44.9 % (37-47); Hemoglobin 14.6 g/dL (12.0-15.0); Lymphocyte # 2.01 X10^3/ul (0.83-4.51); Lymphocyte % 18.9 % (19-41); Mean Corp Hgb Conc 32.5 g/dL (32-36); Mean Corpuscular Hgb 29.4 pg (27.0-32.0); Mean Corpuscular Volume 90.5 fL (81-99); Mean Platelet Vol. 11.8 fl (6.2-12.0); Monocyte# 1.08 X10^3/uL; Monocyte% 10.1 % (0-10); NRBC Flagged by Analyzer 0 % (0-5); Neutrophil # 7.16 X10^3/uL (2.7-7.7); Neutrophil % 67.1 % (47-70); Platelet Count 319 K/mm3 (150-450); RBC Distribution Width CV 13.3 % (11.6-14.6); RBC Distribution Width SD 44.2 fl (35.1-43.9); Red Blood Count 4.96 M/mm3 (4.2-5.4); White Blood Count 10.7 K/mm3 (4.4-11.0)
[2021-08-24 12:14] LABS: Color, Urine Straw (Yellow); Glucose, Dipstick Normal (Normal); Ketone-Dipstick Negative (Negative); Leukocyte Esterase-Dipstick Negative /ul (Negative); Nitrite-Dipstick Negative (Negative); Occult Blood-Urine Negative /ul (Negative); Protein-Dipstick Negative (Negative); Urine Bilirubin Dipstick Negative (Negative); Urine Clarity Sl. Cloudy (Clear); Urine Urobilinogen Normal (Normal)
[2021-08-24 12:20] LABS: Squamous Epithelial Cells - UA 0-5 SEEN /hpf (5-10)
[2021-08-24 12:25] LABS: Hemoglobin A1c 5.8 % (3.8-5.6)
[2021-08-24 12:26] LABS: AST(SGOT) 21 U/L (15-37); Alanine Aminotransfer ALT/SGPT 33 U/L (13-56); Albumin, Serum 3.8 g/dL (3.2-5.0); Alkaline Phosphatase 99 U/L (45-117); Anion Gap 5 (5-15); BUN 18 mg/dL (7-18); BUN/Creat Ratio 23.2 RATIO (10-20); Calcium,Total 9.5 mg/dL (8.5-10.1); Chloride 108 mmol/L (98-107); Cholesterol 167 mg/dL (200); Creatinine, Serum 0.78 mg/dL (0.55-1.02); EST Glomerular Filtration Rate 80 mL/min (>60); Est Glom Filt Rate - Afr Amer 97 mL/min (>60); Globulin 3.8 g/dL (2.2-4.2); Glucose 95 mg/dL (74-106); High Density Lipoprotein 41 mg/dL; Potassium 3.8 mmol/L (3.5-5.1); Protein, Total 7.6 g/dL (6.4-8.2); Sodium Level 139 mmol/L (136-145); Triglycerides 151 mg/dL; Very Low Density Lipoprotein 30 mg/dL (5-40)
[2021-08-24 12:30] LABS: Vitamin D,25 Hydroxy 67.8 ng/mL
== END | disposition home or self-care (01) ==
PROVIDERS: PCP Family Medicine; Referring Provider Family Medicine; Visit Provider Family Medicine
DX: E78.5 Hyperlipidemia, unspecified (principal); E55.9 Vitamin D deficiency, unspecified; R73.02 Impaired glucose tolerance (oral)
CPT/HCPCS: 36415; 80053; 80061; 81001; 82306; 83036; 85025

== ENCOUNTER → 2021-11-22 | Outpatient (CLI) | payer SELFPAY ==
[2021-11-22 10:39] LABS: Hemoglobin A1c 5.7 % (3.8-5.6)
[2021-11-22 10:48] LABS: ALB/GLOB Ratio 0.9 RATIO (0.9-2.4); AST(SGOT) 22 U/L (15-37); Alanine Aminotransfer ALT/SGPT 33 U/L (13-56); Albumin, Serum 3.7 g/dL (3.2-5.0); Alkaline Phosphatase 104 U/L (45-117); Anion Gap 4 (5-15); BUN 18 mg/dL (7-18); BUN/Creat Ratio 26.8 RATIO (10-20); Calcium,Total 9.5 mg/dL (8.5-10.1); Chloride 108 mmol/L (98-107); Creatinine, Serum 0.67 mg/dL (0.55-1.02); EST Glomerular Filtration Rate 95 mL/min (>60); Est Glom Filt Rate - Afr Amer 115 mL/min (>60); Globulin 3.9 g/dL (2.2-4.2); Glucose 99 mg/dL (74-106); Potassium 3.9 mmol/L (3.5-5.1); Protein, Total 7.6 g/dL (6.4-8.2); Sodium Level 139 mmol/L (136-145)
== END | disposition home or self-care (01) ==
LOC: MFPLAB 08:57
PROVIDERS: PCP Family Medicine; Referring Provider Family Medicine; Visit Provider Family Medicine
DX: R73.02 Impaired glucose tolerance (oral) (principal)
CPT/HCPCS: 36415; 80053; 83036

== ENCOUNTER → 2022-03-21 | Outpatient (CLI) | payer SELFPAY ==
[2022-03-21 09:00] LABS: Bacteria 0 SEEN /hpf (None Seen); Mucous, Urine 0 SEEN /hpf (<or=2+)
[2022-03-21 10:07] LABS: Absolute Lymphocyte Count 1.78 X10^3/uL (0.83-4.51); Absolute Neutrophil Count 9.4 X10^3/uL (2.0-7.7); Basophil# 0.08 X10^3/uL; Basophil% 0.6 % (0-1); Eosinophil# 0.33 X10^3/uL; Eosinophils% 2.6 % (0-5); Hematocrit 43.6 % (37-47); Hemoglobin 14.1 g/dL (12.0-15.0); Lymphocyte # 1.78 X10^3/ul (0.83-4.51); Lymphocyte % 13.8 % (19-41); Mean Corp Hgb Conc 32.3 g/dL (32-36); Mean Corpuscular Volume 89.7 fL (81-99); Mean Platelet Vol. 10.6 fl (6.2-12.0); Monocyte# 1.22 X10^3/uL; Monocyte% 9.5 % (0-10); NRBC Flagged by Analyzer 0 % (0-5); Neutrophil # 9.43 X10^3/uL (2.7-7.7); Platelet Count 385 K/mm3 (150-450); RBC Distribution Width CV 13.8 % (11.6-14.6); RBC Distribution Width SD 45.1 fl (35.1-43.9); Red Blood Count 4.86 M/mm3 (4.2-5.4); White Blood Count 12.9 K/mm3 (4.4-11.0)
[2022-03-21 10:11] LABS: Hemoglobin A1c 5.6 % (3.8-5.6)
[2022-03-21 10:15] LABS: Color, Urine Yellow (Yellow); Glucose, Dipstick Normal (Normal); Ketone-Dipstick 5 mg/dl (Negative); Leukocyte Esterase-Dipstick 25 /ul (Negative); Nitrite-Dipstick Negative (Negative); Occult Blood-Urine Negative /ul (Negative); Protein-Dipstick 15 mg/dl (Negative); Urine Bilirubin Dipstick Negative (Negative); Urine Urobilinogen Normal (Normal)
[2022-03-21 10:16] LABS: Urine Clarity Clear (Clear)
[2022-03-21 10:25] LABS: Vitamin D,25 Hydroxy 47.9 ng/mL
[2022-03-21 10:29] LABS: AST(SGOT) 18 U/L (15-37); Alanine Aminotransfer ALT/SGPT 32 U/L (13-56); Albumin, Serum 3.9 g/dL (3.2-5.0); Alkaline Phosphatase 113 U/L (45-117); Anion Gap 8 (5-15); BUN 22 mg/dL (7-18); BUN/Creat Ratio 32.9 RATIO (10-20); Calcium,Total 9.5 mg/dL (8.5-10.1); Chloride 109 mmol/L (98-107); Cholesterol 173 mg/dL (200); Creatinine, Serum 0.67 mg/dL (0.55-1.02); EST Glomerular Filtration Rate 95 mL/min (>60); Est Glom Filt Rate - Afr Amer 115 mL/min (>60); Globulin 4.1 g/dL (2.2-4.2); Glucose 90 mg/dL (74-106); High Density Lipoprotein 51 mg/dL; Potassium 3.7 mmol/L (3.5-5.1); Sodium Level 142 mmol/L (136-145); Triglycerides 121 mg/dL; Very Low Density Lipoprotein 24 mg/dL (5-40)
[2022-03-21 10:31] LABS: Red Blood Cells-Urine 0-5 SEEN /hpf (0-5); Squamous Epithelial Cells - UA 5-10 SEEN /hpf (5-10); White Blood Cells 0-5 SEEN /hpf (0-5)
== END | disposition home or self-care (01) ==
PROVIDERS: PCP Family Medicine; Referring Provider Family Medicine; Visit Provider Family Medicine
DX: E78.5 Hyperlipidemia, unspecified (principal); E55.9 Vitamin D deficiency, unspecified; R73.02 Impaired glucose tolerance (oral)
CPT/HCPCS: 36415; 80053; 80061; 81001; 82306; 83036; 85025

== ENCOUNTER → 2022-09-26 | Outpatient (CLI) | payer SELFPAY ==
--- NOTE | 2022-09-26 12:37 | BI_ITS ---
MAMMOGRAPHY - BILATERAL SCREENING REASON FOR EXAM: Female, 62 years old. Routine annual screening examination. PERTINENT HISTORY: Non-contributory. TECHNIQUE: Digital bilateral breast lizz (3D mammographic acquisition) in the CC and MLO projections. 2-D mediolateral oblique (MLO) and craniocaudad (CC) views of both breasts were obtained. CAD: Full Field Digital Mammography with Computer Added Detection was performed. COMPARISON: Screening mammogram from 08/30/2020, 12/19/2016. FINDINGS: Breast Composition: Portions of the bilateral breasts are heterogeneously dense, which may obscure small masses. There is an asymmetry in the left retroareolar slightly outer breast, middle depth, approximately 5 cm posterior to the nipple and only seen on cc views. This was not seen on prior studies. Further assessment with spot compression views and ultrasound if needed is recommended. No other significant abnormalities are identified. Scattered stable benign-appearing bilateral small lymph nodes. No suspicious calcifications. BI/SCRN MAMM (CAD)W/LIZZ BILAT IMPRESSION: Further imaging evaluation recommended, as described above. (E) Recall Side: Left Breast ASSESSMENT CATEGORY: BIRADS Category 0: Incomplete. Need additional imaging evaluation. A letter regarding these results will be sent to the patient by the facility within 30 days. Approximately 10% of breast cancers are not detected by mammography. A normal mammogram should not delay biopsy of a clinically suspicious abnormality. Electronically Signed: Sunny Reynoso DO at 15:32 EDT ,
== END | disposition home or self-care (01) ==
PROVIDERS: PCP Family Medicine; Referring Provider Family Medicine; Visit Provider Family Medicine
DX: Z12.31 Encounter for screening mammogram for malignant neoplasm of breast (principal)
CPT/HCPCS: 77063; 77067

== ENCOUNTER → 2022-09-29 | Outpatient (CLI) | payer SELFPAY ==
--- NOTE | 2022-09-29 09:25 | US_ITS ---
EXAM: Diagnostic unilateral left breast mammogram and diagnostic unilateral left breast ultrasound REASON FOR EXAM: Female, 62 years old. Call back for left breast asymmetry. PERTINENT HISTORY: Non-contributory. TECHNIQUE: Digital unilateral left breast mitzi (3D mammographic acquisition) in the CC projections. 2-D CC spot compression views of the left breast were obtained. CAD: Full Field Digital Mammography with Computer Added Detection was performed. Real-time carver scale and color sonographic images were obtained of the left retroareolar breast in all 4 quadrants. COMPARISON: Screening mammogram from 09/26/2022. FINDINGS: Mammogram findings: Breast Composition: Portions of the left breast are heterogeneously dense which may obscure small masses. There is some persistence of asymmetry of breast tissues in the left retroareolar breast on spot compression views. No dominant mass is identified. Ultrasound was obtained of the left retroareolar breast to exclude underlying mass. Ultrasound findings: No suspicious masses or abnormal fluid collections in the imaged left breast. US/Breast Limited Unilateral IMPRESSION: Normal-appearing fibroglandular tissue with no suspicious masses or abnormal fluid collections identified on ultrasound examination. Return to annual screening mammography is recommended. ASSESSMENT CATEGORY: BIRADS Category 1: Negative. A letter regarding these results will be sent to the patient by the facility within 30 days. Recommendation: Return to annual screening mammogram. Approximately 10% of breast cancers are not detected by mammography. A normal mammogram should not delay biopsy of a clinically suspicious abnormality. Electronically Signed: Sunny Reynoso DO at 16:34 EDT ,
== END | disposition home or self-care (01) ==
PROVIDERS: PCP Family Medicine; Referring Provider Family Medicine; Visit Provider Family Medicine
DX: R92.8 Other abnormal and inconclusive findings on diagnostic imaging of breast (principal)
CPT/HCPCS: 76642; 77061; 77065; G0279

== ENCOUNTER → 2023-02-08 | Outpatient (CLI) | payer SELFPAY ==
[2023-02-08 14:47] LABS: Bacteria 0 SEEN /hpf (None Seen); Mucous, Urine 0 SEEN /hpf (<or=2+); Red Blood Cells-Urine 0 SEEN /hpf (0-5); Squamous Epithelial Cells - UA 0 SEEN /hpf (5-10); White Blood Cells 0 SEEN /hpf (0-5)
[2023-02-08 17:52] LABS: Color, Urine Yellow (Yellow); Glucose, Dipstick Normal (Normal); Ketone-Dipstick Negative (Negative); Leukocyte Esterase-Dipstick 25 /ul (Negative); Nitrite-Dipstick Negative (Negative); Occult Blood-Urine Negative /ul (Negative); Protein-Dipstick Negative (Negative); Specific Gravity, Urine 1.025 (1.002-1.030); Urine Bilirubin Dipstick Negative (Negative); Urine Clarity Clear (Clear); Urine Urobilinogen Normal (Normal)
[2023-02-08 18:27] LABS: ALB/GLOB Ratio 0.8 RATIO (0.9-2.4); AST(SGOT) 30 U/L (15-37); Alanine Aminotransfer ALT/SGPT 53 U/L (13-56); Albumin, Serum 3.4 g/dL (3.2-5.0); Alkaline Phosphatase 148 U/L (45-117); Anion Gap 4 (5-15); BUN 21 mg/dL (7-18); BUN/Creat Ratio 31.4 RATIO (10-20); Calcium,Total 8.7 mg/dL (8.5-10.1); Chloride 108 mmol/L (98-107); Cholesterol 138 mg/dL (200); Creatinine, Serum 0.67 mg/dL (0.55-1.02); EST Glomerular Filtration Rate 95 mL/min (>60); Est Glom Filt Rate - Afr Amer 115 mL/min (>60); Globulin 4.1 g/dL (2.2-4.2); Glucose 124 mg/dL (74-106); High Density Lipoprotein 30 mg/dL; Potassium 3.3 mmol/L (3.5-5.1); Protein, Total 7.5 g/dL (6.4-8.2); Sodium Level 139 mmol/L (136-145); Triglycerides 376 mg/dL; Very Low Density Lipoprotein 75 mg/dL (5-40)
== END | disposition home or self-care (01) ==
LOC: MFPLAB 14:44
PROVIDERS: PCP Family Medicine; Visit Provider Family Medicine
DX: R73.02 Impaired glucose tolerance (oral) (principal)
CPT/HCPCS: 36415; 80053; 80061; 81001; 83036

== ENCOUNTER → 2023-02-15 | Outpatient (CLI) | payer SELFPAY ==
--- OUTSIDE RECORDS SUMMARY | 2023-02-15 12:02 | XMS RPT_ITS | CCD ---
Author Name Unknown Address [address] [facility] [address] [place] [id number] Organization [facility] Care Team Providers Care Continuous Improvement Engineer Name Role Phone GOGO BARBER Unavailable Unavailable GOGO BARBER Unavailable Unavailable GOGO BARBER Unavailable Unavailable GOGO BARBER Unavailable Unavailable GOGO BARBER R Unavailable Unavailable Problems Active Problems Problem Classification Problem Date Documented Da te Episodic/Chronic Disorders of lipid metabolism (1 source) Mixed hyperlipidemia; Translations: [Mixed hyperlipidemia] Onset: 12-15-2016 Chronic Unclassified (1 source) Unknown / UNK(Unknown) Onset: 12-18-2016 Past or Other Problems Problem Classification Problem Date Documented Da te Episodic/Chronic Unclassified (2 sources) Encounter for screening for malignant neoplasm of colon; Translations: [Encounter for screening mammogram for malignant neoplasm of breast] Onset: 12-19-2016 Episodic Results Test Name Value Interpretation Reference Range Facil ity Encounters Encounter Date Encounter Type Care Provider Facility Start: 12-19-2016 End: 12-19-2016 Ambulatory GOGO BARBER [facility] Start: 12-18-2016 End: 12-19-2016 Ambulatory GOGO BARBER [facility] Start: 12-15-2016 End: 12-15-2016 Ambulatory GOGO BARBER [facility] Summary Purpose Family History No Family History Records Found Advance Directives No Advanced Directives Records Found Additional Source Comments INFORMATION SOURCE (unrecogn ized section and content) FOR RECORDS PERTAINING TO PATIENTS WHO ARE OR HAVE BEEN ENROLLED IN A CHEMICAL DEPENDENCY/SUBSTANCEABUSE PROGRAM, SOME INFORMATION MAY BE OMITTED. This clinical summary was aggregated from multiple sources. Caution should be exercised in using it in the provision of clinical care. This summary normalizes information from multiple sources, and as a consequence, information in this document may materially change the coding, format and clinical context of patient data. In addition, data may be omitted in some cases. CLINICAL DECISIONS SHOULD BE BASED ON THE PRIMARY CLINICAL RECORDS. [facility]. provides no warranty or guarantee of the accuracy or completeness of information in this document.
[2023-02-15 13:29] LABS: Anion Gap 7 (5-15); BUN 17 mg/dL (7-18); BUN/Creat Ratio 24.4 RATIO (10-20); Calcium,Total 9.6 mg/dL (8.5-10.1); Chloride 109 mmol/L (98-107); EST Glomerular Filtration Rate 90 mL/min (>60); Est Glom Filt Rate - Afr Amer 109 mL/min (>60); Glucose 112 mg/dL (74-106); Potassium 4.2 mmol/L (3.5-5.1); Sodium Level 138 mmol/L (136-145)
== END | disposition home or self-care (01) ==
LOC: MFPLAB 10:52
PROVIDERS: PCP Family Medicine; Visit Provider Family Medicine
DX: I10 Essential (primary) hypertension (principal)
CPT/HCPCS: 36415; 80048

== ENCOUNTER → 2023-03-08 | Outpatient (CLI) | payer SELFPAY ==
[2023-03-08 12:23] LABS: Anion Gap 3 (5-15); BUN 19 mg/dL (7-18); BUN/Creat Ratio 28.6 RATIO (10-20); Calcium,Total 9.6 mg/dL (8.5-10.1); Chloride 107 mmol/L (98-107); Creatinine, Serum 0.66 mg/dL (0.55-1.02); EST Glomerular Filtration Rate 96 mL/min (>60); Est Glom Filt Rate - Afr Amer 116 mL/min (>60); Glucose 111 mg/dL (74-106); Potassium 3.9 mmol/L (3.5-5.1); Sodium Level 135 mmol/L (136-145)
== END | disposition home or self-care (01) ==
LOC: MTLAB 10:29
PROVIDERS: PCP Family Medicine; Referring Provider Family Medicine; Visit Provider Family Medicine
DX: I10 Essential (primary) hypertension (principal)
CPT/HCPCS: 36415; 80048

== ENCOUNTER → 2023-08-17 | Outpatient (CLI) | payer SELFPAY | END | disposition home or self-care (01) | PROVIDERS: PCP Family Medicine; Referring Provider Family Medicine; Visit Provider Family Medicine | DX: Z12.4 Encounter for screening for malignant neoplasm of cervix (principal) ==

== ENCOUNTER → 2024-03-25 | Outpatient (CLI) | payer SELFPAY ==
[2024-03-25 16:09] LABS: Absolute Lymphocyte Count 2.16 X10^3/uL (0.83-4.51); Absolute Neutrophil Count 8.2 X10^3/uL (2.0-7.7); Basophil# 0.06 X10^3/uL; Basophil% 0.5 % (0-1); Eosinophil# 0.26 X10^3/uL; Eosinophils% 2.2 % (0-5); Hematocrit 40.2 % (37-47); Hemoglobin 12.5 g/dL (12.0-15.0); Lymphocyte # 2.16 X10^3/ul (0.83-4.51); Lymphocyte % 18.7 % (19-41); Mean Corp Hgb Conc 31.1 g/dL (32-36); Mean Corpuscular Hgb 28.8 pg (27.0-32.0); Mean Corpuscular Volume 92.6 fL (81-99); Mean Platelet Vol. 11.5 fl (6.2-12.0); Monocyte# 0.84 X10^3/uL; Monocyte% 7.3 % (0-10); NRBC Flagged by Analyzer 0 % (0-5); Neutrophil # 8.18 X10^3/uL (2.7-7.7); Neutrophil % 70.7 % (47-70); Platelet Count 338 K/mm3 (150-450); RBC Distribution Width CV 13.6 % (11.6-14.6); RBC Distribution Width SD 46.3 fl (35.1-43.9); Red Blood Count 4.34 M/mm3 (4.2-5.4); White Blood Count 11.6 K/mm3 (4.4-11.0)
[2024-03-25 16:30] LABS: ALB/GLOB Ratio 1.1 RATIO (0.9-2.4); AST(SGOT) 22 U/L (15-37); Alanine Aminotransfer ALT/SGPT 29 U/L (13-56); Albumin, Serum 3.8 g/dL (3.2-5.0); Alkaline Phosphatase 84 U/L (45-117); Anion Gap 9 (5-15); BUN 27 mg/dL (7-18); BUN/Creat Ratio 29.3 RATIO (10-20); Calcium,Total 9.3 mg/dL (8.5-10.1); Chloride 107 mmol/L (98-107); Cholesterol 166 mg/dL (200); Creatinine, Serum 0.92 mg/dL (0.55-1.02); EST Glomerular Filtration Rate 65 mL/min (>60); Est Glom Filt Rate - Afr Amer 79 mL/min (>60); Ferritin 85 ng/mL (8-252); Globulin 3.6 g/dL (2.2-4.2); Glucose 124 mg/dL (74-106); High Density Lipoprotein 46 mg/dL; Iron 64 ug/dL (50-170); Iron Binding Capacity,Total 385 ug/dL (250-450); Potassium 4.4 mmol/L (3.5-5.1); Protein, Total 7.4 g/dL (6.4-8.2); Sodium Level 139 mmol/L (136-145); Triglycerides 187 mg/dL; Very Low Density Lipoprotein 37 mg/dL (5-40)
[2024-03-27 14:50] LABS: Vitamin D,25 Hydroxy 59.8 ng/mL
== END | disposition home or self-care (01) ==
LOC: MFPLAB 12:25
PROVIDERS: PCP Family Medicine; Referring Provider Family Medicine; Visit Provider Family Medicine
DX: D64.9 Anemia, unspecified (principal); I10 Essential (primary) hypertension; E55.9 Vitamin D deficiency, unspecified; R73.02 Impaired glucose tolerance (oral)
CPT/HCPCS: 36415; 80053; 80061; 82306; 82728; 83036; 83540; 83550; 85025

== ENCOUNTER → 2024-04-29 | Outpatient (CLI) | payer SELFPAY ==
--- NOTE | 2024-04-29 08:08 | BI_ITS ---
EXAM: PROCEDURE: MA Mammogram Digital Screen CLINICAL HISTORY: Screening COMPARISON: Mammogram study dated 09/29/2022 TECHNIQUE: A bilateral screening mammogram was obtained with MLO and CC views of both breasts with digital breast tomosynthesis. BREAST CANCER RISK ASSESSMENT: Does not appear to have been calculated. FINDINGS: There are 2 well-circumscribed isodense masses in the superior outer ,far posterior aspect of the right breast noted. Neither of these appear to have a definitive fatty hilum on the mitzi images. Further workup is indicated. The largest mass measures 5 mm and the smaller mass measures 3 mm. No suspicious masses, suspicious calcifications or other suspicious mammogram findings are seen in the left breast. Benign-appearing round calcifications are seen in both breasts. CONCLUSION: Right Breast: BI-RADS category 0, incomplete, additional imaging needed. Left Breast: BI-RADS category 2, benign findings Breast Composition: There are scattered areas of fibroglandular density. Recommendation: Diagnostic mammogram and ultrasound Patient should return for an LM view of the right breast as well as spot compression CC and spot compression MLO views of the right breast masses. An ultrasound will also most likely be needed. Thank you for referring your patient to the [facility], if you have any questions, please call us at the performing site listed at the top of the report. [facility] , [facility] , [facility] and [facility] . Reading Location: [id number]
== END | disposition home or self-care (01) ==
PROVIDERS: PCP Family Medicine; Referring Provider Family Medicine; Visit Provider Family Medicine
DX: Z12.31 Encounter for screening mammogram for malignant neoplasm of breast (principal)
CPT/HCPCS: 77063; 77067

== ENCOUNTER → 2024-05-07 | Outpatient (CLI) | payer SELFPAY ==
--- NOTE | 2024-05-07 09:29 | BI_ITS ---
PROCEDURE: DIAG MAMM W/CAD, UNILAT; BREAST LIMITED UNILATERAL; RT BRST UNILAT LIZZ ADD-ON REASON FOR EXAM: F, Age 64 y/o, recalled from screening for findings in the right breast. No family history of breast cancer. COMPARISON: Prior exam(s) dating back to 04/29/2024. TECHNIQUE: Right diagnostic digital breast tomosynthesis with 2D and 3D images. Computer aided detection. Also, targeted right breast ultrasound was performed. FINDINGS: MAMMOGRAM: TISSUE DENSITY: There are scattered areas of fibroglandular density. Follow-up examination performed for the right breast masses seen on examination of 04/29/2024. On the present examination, there are 2 adjacent reniform masses in the upper-outer right breast at posterior depth, these likely represent small intramammary lymph node. ULTRASOUND: Ultrasound performed of the upper-outer right breast demonstrates 2 adjacent small normal-appearing intramammary lymph node at 11:30 o'clock 7 cm from the nipple, measuring 0.4 x 0.5 x 0.4 cm and 0.5 x 0.4 x 0.4 cm. These likely represent the findings visualized on the mammogram. Also there is an additional normal-appearing low- lying lymph node in the right breast at 11 o'clock 8 cm from the nipple measuring 1.7 x 0.7 x 0.5 cm. BI/DIAG MAMM W/CAD, UNILAT IMPRESSION: Benign intramammary lymph nodes in the right breast. BI-RADS 2: BENIGN RECOMMEND ANNUAL MAMMOGRAPHIC SCREENING. Reading Location: [id number]
--- NOTE | 2024-05-07 09:29 | BI_ITS ---
PROCEDURE: DIAG MAMM W/CAD, UNILAT; BREAST LIMITED UNILATERAL; RT BRST UNILAT LIZZ ADD-ON REASON FOR EXAM: F, Age 64 y/o, recalled from screening for findings in the right breast. No family history of breast cancer. COMPARISON: Prior exam(s) dating back to 04/29/2024. TECHNIQUE: Right diagnostic digital breast tomosynthesis with 2D and 3D images. Computer aided detection. Also, targeted right breast ultrasound was performed. FINDINGS: MAMMOGRAM: TISSUE DENSITY: There are scattered areas of fibroglandular density. Follow-up examination performed for the right breast masses seen on examination of 04/29/2024. On the present examination, there are 2 adjacent reniform masses in the upper-outer right breast at posterior depth, these likely represent small intramammary lymph node. ULTRASOUND: Ultrasound performed of the upper-outer right breast demonstrates 2 adjacent small normal-appearing intramammary lymph node at 11:30 o'clock 7 cm from the nipple, measuring 0.4 x 0.5 x 0.4 cm and 0.5 x 0.4 x 0.4 cm. These likely represent the findings visualized on the mammogram. Also there is an additional normal-appearing low- lying lymph node in the right breast at 11 o'clock 8 cm from the nipple measuring 1.7 x 0.7 x 0.5 cm. BI/Rt Brst Unilat Lizz Add-On IMPRESSION: Benign intramammary lymph nodes in the right breast. BI-RADS 2: BENIGN RECOMMEND ANNUAL MAMMOGRAPHIC SCREENING. Reading Location: [id number]
== END | disposition home or self-care (01) ==
PROVIDERS: PCP Family Medicine; Referring Provider Family Medicine; Visit Provider Family Medicine
DX: N63.11 Unspecified lump in the right breast, upper outer quadrant (principal)
CPT/HCPCS: 76642; 77061; 77065; G0279